=== PATIENT | female | born 1980 | race Caucasian/White ===

== ENCOUNTER 2020-02-16 17:10 | Outpatient (REF) | payer MEDICAID, SELFPAY ==
[2020-02-16 20:48] LABS: Calculated LDL 98 mg/dL (<100); Cholesterol 159 mg/dL (<200); HDL Cholesterol 47 mg/dL (40-60); Triglyceride 73 mg/dL (<150)
== END 2020-02-16 17:30 ==
LOC: NCHCN 17:10
PROVIDERS: Visit Provider Nurse Practitioner Family
DX: Z13.220 Encounter for screening for lipoid disorders (principal)
CPT/HCPCS: 80061